=== PATIENT | female | born 1940 | race Caucasian/White ===

== ENCOUNTER 2016-06-27 18:25 | Emergency (ER) | payer MEDICARE ==
[2016-06-27] MEDS ORDERED: IOPAMIDOL 370 (76%) 100 ML VIAL IV ONE (18:26)
[2016-06-27 19:14] LABS: ABSOLUTE NEUTROPHIL COUNT 2.7 K/mm3 (1.8-7.7); BASO % 0.5 % (0.2-1.0); EOS # 0.2 (0.0-0.5); EOS % 3.1 % (0.9-2.9); HEMATOCRIT 41.7 % (37.0-47.0); HEMOGLOBIN 13.3 gm/l (12.0-16.0); IMM NEUT% 0.2 % (0-1); LYMPH # 2.9 (1.0-4.8); MEAN CELL VOLUME 91.6 fl (81.0-99.0); MEAN CORPUSCULAR HEMOGLOBIN 29.2 pg (27.0-31.0); MEAN CORPUSCULAR HGB CONC 31.9 g/dl (33.0-37.0); MEAN PLATELET VOLUME 9.2 fl (7.4-10.4); MONO # 0.4 (0.0-0.8); MONO % 6.3 % (4-12); NEUT % 43.9 % (43-75); PLATELET COUNT 180 K/mm3 (130-400); RED CELL DISTRIBUTION WIDTH 13.3 % (11.5-14.5)
[2016-06-27 19:25] LABS: INR 3.06; PROTHROMBIN TIME 34.1 SECONDS (9.3-11.4)
[2016-06-27 19:28] LABS: CALCIUM 9.1 mg/dL (8.6-10.3)
--- NOTE | 2016-06-27 20:02 | CT ---
Name: POPEYE HERNANDEZ Exam: CT abdomen pelvis with contrast Comparison: 04/13/2016 History: Slip and fall. Back pain and right hip pain. Procedure: Helical CT using multidetector technique was applied to the abdomen and pelvis during intravenous administration of 100 mL Isovue-370. No oral contrast was given per ordering physician. An automated dose reduction technique was used to minimize patient radiation dose. Findings: CT abdomen (contrast enhanced): There is mild vascular congestion in the lung bases. Heart is not particularly enlarged. There is no pericardial effusion. Liver, gallbladder, pancreas, spleen, adrenal glands, kidneys, IVC and portal vein are normal. There is atherosclerosis of a normal caliber aorta. There is moderate food within the stomach. Small bowel and colon are within normal limits. There is no free air, free fluid or suspicious adenopathy. Advanced degenerative disc disease is noted throughout the visualized spine. There is severe facet disease at L5-S1 left greater than right. There is no fracture. CT pelvis (contrast enhanced): Bladder is partially filled. Uterus is surgically absent. Small atrophic ovaries are thought to be identified. The sigmoid colon is somewhat redundant. Small bowel and appendix are normal. There is mild vascular calcification. There is no free air, free fluid or suspicious adenopathy. There is mild degenerative disease of the SI joints and of the pubic symphysis. There is no suspicious bony abnormality with respect to the hips. Impression: 1. No acute intra-abdominal or intrapelvic process. 2. Advanced degenerative disc disease throughout the lumbar spine. Degenerative facet disease is most prominent at L5-S1. 3. No acute bony abnormality 4. Surgically absent uterus Note: The above report was uploaded to [facility]'s electronic medical records system at 1958 hours.
[2016-06-27] MEDS ORDERED: HYDROCODONE/ACETAMINOPHEN 5/325MG TABLET ONE (20:42)
== END 2016-06-27 20:47 | disposition home or self-care (01) ==
LOC: ED 18:25
DX: S30.0XXA Contusion of lower back and pelvis, initial encounter (principal); I10 Essential (primary) hypertension; Z79.01 Long term (current) use of anticoagulants; Z86.711 Personal history of pulmonary embolism; Z87.891 Personal history of nicotine dependence; W18.30XA Fall on same level, unspecified, initial encounter; Y92.9 Unspecified place or not applicable
CPT/HCPCS: 85025; 80048; 85610; 74177; 99283; 99284; Q9967; A9270

== ENCOUNTER 2016-08-26 10:23 | Emergency (ER) | payer MEDICARE ==
[2016-08-26 10:51] LABS: ABSOLUTE NEUTROPHIL COUNT 2.7 K/mm3 (1.8-7.7); BASO % 0.5 % (0.2-1.0); EOS # 0.1 (0.0-0.5); EOS % 2.6 % (0.9-2.9); HEMATOCRIT 43.2 % (37.0-47.0); HEMOGLOBIN 13.8 gm/l (12.0-16.0); IMM NEUT% 0.2 % (0-1); LYMPH # 2.3 (1.0-4.8); LYMPH % 42.8 % (15-45); MEAN CELL VOLUME 91.1 fl (81.0-99.0); MEAN CORPUSCULAR HEMOGLOBIN 29.1 pg (27.0-31.0); MEAN CORPUSCULAR HGB CONC 31.9 g/dl (33.0-37.0); MEAN PLATELET VOLUME 9.3 fl (7.4-10.4); MONO # 0.3 (0.0-0.8); MONO % 5.1 % (4-12); NEUT % 48.8 % (43-75); PLATELET COUNT 209 K/mm3 (130-400); RED CELL DISTRIBUTION WIDTH 13.2 % (11.5-14.5)
[2016-08-26 10:52] LABS: PH,URINE 6.5 (5.0-8.0); URINE BILIRUBIN NEGATIVE (NEGATIVE); URINE BLOOD NEGATIVE (NEGATIVE); URINE GLUCOSE (UA) NEGATIVE (NEGATIVE); URINE LEUKOCYTE ESTERASE TRACE (NEGATIVE); URINE NITRITE NEGATIVE (NEGATIVE); URINE PROTEIN NEGATIVE (NEGATIVE); URINE UROBILINOGEN 1 mg/dL (0-1 mg/dl)
[2016-08-26 10:53] LABS: URINE APPEARANCE CLEAR; URINE COLOR AMBER
[2016-08-26 11:01] LABS: URINE AMORPHOUS SEDIMENT FEW; URINE BACTERIA FEW; URINE RBC 0-1 /hpf
[2016-08-26 11:09] LABS: CALCIUM 9.3 mg/dL (8.6-10.3)
[2016-08-26] MEDS: IOPAMIDOL 300 (61%) 100 ML VIAL IV ONE (12:03)
[2016-08-26 12:10] LABS: ALB/GLOB RATIO 1.4 (>1.0); ALBUMIN 4.1 gm/dL (3.5-5.7); CALCIUM 9.3 mg/dL (8.6-10.3)
--- NOTE | 2016-08-26 12:39 | CT ---
CT ABDOMEN AND PELVIS WITH CONTRAST HISTORY: Right lower quadrant pain. TECHNIQUE: Following intravenous administration of 100 mL Isovue-300, contiguous axial images were acquired from the lung bases to the ischial tuberosities. Oral contrast was not administered. COMPARISON:None. FINDINGS: LUNG BASES: No gross airspace consolidation or pleural effusion. LIVER: No focal lesion. SPLEEN: No focal lesion. PANCREAS: No gross mass effect. Minor calcifications compatible with remote inflammatory episode. ADRENAL GLANDS: No mass effect. KIDNEYS: No focal lesion. No collecting system dilatation. GALLBLADDER: Present. BOWEL: Moderate fecal loading. Limited assessment of the distal colon due to decompression. No abnormal small bowel dilatation. APPENDIX: Normal gas-filled appendix. PELVIC ORGANS: Post hysterectomy change, no adnexal mass effect. FREE FLUID: No gross free fluid identified. ABDOMINOPELVIC LYMPH NODES: Peripancreatic node measures 2.3 x 1.1 cm, compared to 2.1 x 1.1 cm previously. Portacaval lymph node measures 1.3 cm in width, unchanged. There is redemonstration of mesenteric fatty stranding extending to the right lower quadrant nasal: Mildly decreased prominence interval similarly right lower quadrant mesenteric lymph nodes are again seen. ABDOMINAL AORTA: Normal caliber. OSSEOUS STRUCTURES: Prominent changes of thoracolumbar disc degeneration without compression fracture. Lower lumbar facet degeneration. INGUINAL REGIONS: Fatty hernia in the left. IMPRESSION: 1. Redemonstration of increased number of lymph nodes and mild fatty stranding associated with the mesentery, fatty stranding decreased over the interval. This may reflect changes of mesenteric adenitis and panniculitis. The appendix is unremarkable. 2. Noninflammatory, nonobstructive appearance of bowel. 3. Mild prominence of upper abdominal lymph nodes. 4. Post hysterectomy change. No adnexal mass effect or free fluid. 5. Evidence of thoracolumbar spondylosis. 6. Fatty left inguinal hernia.
[2016-08-26] MEDS ORDERED: ENEMA--adult 1 EACH ONE (13:38)
== END 2016-08-26 14:16 | disposition home or self-care (01) ==
LOC: ED 10:23
DX: K59.00 Constipation, unspecified (principal); R11.2 Nausea with vomiting, unspecified; I10 Essential (primary) hypertension; E03.9 Hypothyroidism, unspecified; F17.210 Nicotine dependence, cigarettes, uncomplicated; Z86.711 Personal history of pulmonary embolism; Z79.01 Long term (current) use of anticoagulants